=== PATIENT | male | born 1945 | race Caucasian/White ===

== ENCOUNTER → 2021-05-14 17:39 | Outpatient (CLI) | payer BC, SELFPAY ==
--- NOTE | ~2021-05-14 | XR_ITS ---
XR cervical spine 4-5V DATE: 05/14/2021 18:01 INDICATION: Neck pain TECHNIQUE: AP, open-mouth, lateral and swimmer views COMPARISON: None FINDINGS: C1 and C2 are normally aligned and the odontoid process is intact. No fracture or dislocati on or locked facet or prevertebral soft tissue swelling. There is moderate degenerative disc disease at C5-6 and severe degenerative disc disease at C6-7. IMPRESSION: Degenerative disc disease at C5-C6 and particularly C6-7 Reviewed, dictated and finalized at location A.
== END ==
DX: M50.323 Other cervical disc degeneration at C6-C7 level (principal)
CPT/HCPCS: 72050